=== PATIENT | male | born 1970 | race Two or more races ===

== ENCOUNTER 2021-04-26 04:58 | Emergency (ER) | payer OTHER ==
--- NOTE | 2021-04-26 05:15 | ED Physician Documentation ---
PD HPI UPPER EXT INJURY - Stated complaint Stated Complaint: RIGHT SHOULDER INJ,GLF - History obtained from History obtained from: Patient - History of Present Illness Location: Right, Shoulder Type of injury: Fall Where injury occurred: Street Timing - onset: Enter time (18:00) Timing - details: Abrupt onset Pain level now: 6 Improved by: Rest Worsened by: Moving, Palpating Associated symptoms: No: Weakness, Numbness, Tingling, Swelling, Discolored Contributing factors: No: Anticoagulated Similar symptoms before: Has not had sx before - Additonal information Additional information: patient slipped and fell on ice while walking on a sidewalk in [place] this evening, approximately 6 PM, fell onto his right shoulder and c/o sudden onset right shoulder pain. He slipped a second time an hour or two later, again landing on the right shoulder, exacerbating the pain. He is ambidextrous. Review of Systems Musculoskeletal: reports: Joint pain. denies: Neck pain, Back pain, Extremity pain, Extremity swelling, Joint swelling, Pain with weight bearing Neurologic: denies: Focal weakness, Numbness, Head injury PD PAST MEDICAL HISTORY - Past Medical History Past Medical History: No - Present Medications Home Medications: Ambulatory Orders Medication Instructions Recorded Confirmed HYDROcod/ACETAM 5/325 [[place] 5/325] 1 - 2 tablet PO Q6H PRN #14 tablet 04/26/21 Lisinopril [Zestril] 10 mg PO DAILY 04/26/21 04/26/21 amLODIPine [Norvasc] 5 mg PO ONCE 04/26/21 04/26/21 - Allergies Allergies/Adverse Reactions: Allergies Allergy/AdvReac Type Severity Reaction Status Date / Time No Known Drug Allergies Allergy Verified 04/26/21 05:16 PD ED PE NORMAL - Vitals Vital signs reviewed: Yes - General General: Alert and oriented X 3, No acute distress (at rest, appears to have painful distress with movement involving right shoulder), Well developed/nourished - HEENT HEENT: Atraumatic - Extremities Extremities: No deformity - Neuro Neuro: No motor deficit (as testable (unable to assess shoulder strength due to pain): 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, 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 No concerning findings on plain-film xrays. Given splint and analgesia (PO) with rx for same I am prescribing a short course of short-acting opioid pain medication for this patient. 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 I have discussed that the opioids are for short term therapy only, and will not be refilled from the ED Departure - Departure Disposition: 01 Home, Self Care Clinical Impression: Sprain of shoulder, right Qualifiers: Encounter type: initial encounter Shoulder sprain type: unspecified sprain Qualified Code(s): S43.401A - Unspecified sprain of right shoulder joint, initial encounter Condition: Good Instructions: ED Sprain Shoulder, ED Sling Prescriptions: HYDROcod/ACETAM 5/325 [[place] 5/325] 1 - 2 tablet PO Q6H PRN #14 tablet PRN Reason: Pain Comments: A prescription for hydrocodone with acetaminophen (narcotic pain medication) has been electronically submitted to [facility] pharmacy in [place]. The xrays do not show any fractures/breaks nor dislocation. You should follow up with your primary care provider within the coming week for reevaluation. I am prescribing a short course of narcotic pain medication for you. These are p otentially dangerous and addictive medications that should be used carefully. These medications may constipate you. Take an [id number]-[id number] stool softener (docusate) twice daily with plenty of water while taking these medications. If you go 24 hours without a bowel movement, take [id number] miralax, per package instructions. Do not drink or drive while taking these medications. If you received narcotic or sedating medications while in the emergency department, do not drive for 24 hours. Store this medication in a safe, secure place and out of reach of children. It is a violation of federal law to give or sell this medication to another person or to use in a manner other than prescribed. The ED will not refill narcotic prescriptions, including prescriptions lost or stolen. To dispose of unwanted medications: 1. [facility] at [address] in [place] has a medication drop box. They accept prescription medications (in pill form) Wednesday through Wednesday 9:00 a.m. to 5:00 p.m. 2. The [facility] [employer] accepts prescription medications (in pill form only) for disposal year round. Call for more information. 3. Contact the [facility] for the next [facility] sponsored prescription drug collection event. , [phone], or [phone]; Discharge Date/Time: 04/26/21 08:22
[2021-04-26] MEDS ORDERED: HYDROcod/ACETAM 5/325 MG TABLET PO STA (08:01)
[2021-04-26 08:06] VITALS: BP 148/90
--- NOTE | 2021-04-26 08:23 | XRAY Report ---
PROCEDURE: Shoulder 3 View RT INDICATIONS: fall, pain and tenderness TECHNIQUE: 3 views of the shoulder were acquired. COMPARISON: None. FINDINGS: Bones: No fractures or dislocations. No suspicious bony lesions. Visualized ribs appear intact. M ild degenerative changes are seen, with subacromial spurring. Soft tissues: No suspicious soft tissue calcifications. The visualized lung demonstrates a normal a ppearance. IMPRESSION: No acute plain film abnormality can be seen. Please correlate with focal tenderness. If there is point tenderness (or other clinical concern for a fracture not seen on these plain films) then please consider a dedicated CT study or a short term fo llow up plain film series for further evaluation. If there is strong clinical concern for internal derangement of this joint, please consider a dedicat ed MRI for further evaluation (assuming that there is no contraindication). Note: No significant discrepancy from the preliminary report. Reviewed by: Santana Arnold MD on 04/26/2021 7:22 AM [facility] Approved by: Santana Arnold MD on 04/26/2021 7:22 AM [facility] Station ID: [id number]
== END 2021-04-26 08:22 | disposition home or self-care (01) ==
LOC: ED 04:58
DX: S43.401A Unspecified sprain of right shoulder joint, initial encounter (principal); W01.0XXA Fall on same level from slipping, tripping and stumbling without subsequent striking against object, initial encounter; Y93.01 Activity, walking, marching and hiking; Y92.410 Unspecified street and highway as the place of occurrence of the external cause
CPT/HCPCS: 73030; 99283; A9270